=== PATIENT | female | born 1965 | race Two or more races ===

== ENCOUNTER 2022-06-16 23:41 | Emergency (ER) | payer OTHER ==
[~2022-06-16] VITALS: Ht 157.5 cm; Wt 57.2 kg
[2022-06-16] MEDS ORDERED: CLONAZEPAM0.5 M1 PO (23:49)
[2022-06-17] MEDS ORDERED: KETO10TA2 PO (01:36)
== END 2022-06-17 | disposition home or self-care (01) ==
LOC: ER 23:41
DX: S69.92XA Unspecified injury of left wrist, hand and finger(s), initial encounter (principal); W19.XXXA Unspecified fall, initial encounter; Y93.9 Activity, unspecified; Y92.9 Unspecified place or not applicable; Z88.6 Allergy status to analgesic agent